=== PATIENT | female | born 1965 | race Caucasian/White ===

== ENCOUNTER 2016-08-07 10:33 | Emergency (ER) | payer OTHER, MEDICARE ==
[~2016-08-07] VITALS: Ht 162.6 cm; Wt 64.0 kg
[2016-08-07 10:35] VITALS: BP 141/74; PULSE 75; RESP 16; TEMP 97.8; O2SAT 98
[2016-08-07] MEDS ORDERED: NAPR220T95 PO (11:04)
[2016-08-07] MEDS ORDERED: TOPI1TAB31 PO (11:04)
[2016-08-07] MEDS ORDERED: FURO1TAB62 PO (11:04)
--- NOTE | 2016-08-07 11:04 | PD ---
HPI . acute on chronic back pain, now with loss of bowel/bladder fxn Chief Complaint: Back/ Neck Pain or Injury Time Seen by Provider: 11:03 Travel History International Travel<30 days: No Contact w/Intl Traveler<30days: No Traveled to known affect area: No History of Present Illness HPI 51-year-old female with a long-standing history of chronic back pain stemming as far back as 2004 in our records here with complaints of acute on chronic back pain. Patient tells me that she has been having extreme amounts of pain in her lower back. She rates the pain as 8/10 and it extends into her lower extremities. Within the past month patient has had several episodes of loss of bowel function. She tells me she was unaware that she actually had a bowel movement. She is also having similar issues with her urine. She is in the process of getting a new primary care provider, but does not have an appointment until the end of this month. PFSH Past Medical History ?: Not Social History Tobacco Use: No Allergies-Medications (Allergen,Severity, Reaction): Coded Allergies: Morphine (Verified Allergy, Severe, ITCHING, 08/07/16) Tramadol (Verified Allergy, Severe, ITCHING, 08/07/16) Uncoded Allergies: ANTIBIOTIC (Allergy, Severe, ITCHING, 08/07/16) Reported Meds & Prescriptions Reported Meds & Active Scripts Active Reported Aleve (Naproxen Sodium) 220 Mg Tab 220 Mg PO BID PRN Topiramate 100 Mg Tab 100 Mg PO BID Lasix (Furosemide) 20 Mg Tab 20 Mg PO DAILY Review of Systems General / Constitutional: No: Fever Eyes: No: Visual changes HENT: No: Headaches Cardiovascular: No: Chest Pain or Discomfort Respiratory: No: Shortness of Breath Gastrointestinal: No: Abdominal Pain Genitourinary: No: Dysuria Musculoskeletal: Positive: Pain (back pain) Skin: No Rash Neurologic: No: Weakness Psychiatric: No: Depression Endocrine: No: Polydipsia Hematologic/Lymphatic: No: Easy Bruising Physical Exam Narrative GENERAL: AAO x 3, no acute distress, Well-nourished, well-developed patient. SKIN: Warm and dry. No visible rashes or bruising. HEAD: Normocephalic and atraumatic. EYES: No scleral icterus. No injection or drainage. ENT: No nasal drainage noted. Airway patent. NECK: Supple, trachea midline. No JVD. CARDIOVASCULAR: Regular rate and rhythm without murmurs, gallops, or rubs. RESPIRATORY: Breath sounds equal bilaterally. No accessory muscle use. No rhonchi or rales. GASTROINTESTINAL: Abdomen soft, non-tender, nondistended. EXTREMITIES: No cyanosis or edema. BACK: SLR ++ right side, sensation in the RLE is abnormal compared to left, diminished strength in RLE. patient very uncomfortable with any movement of lower back PSYCH: AAO x 3, normal affect. Data Data Last Documented VS Vital Signs Date Time Temp Pulse Resp B/P Pulse Ox O2 Delivery O2 Flow Rate FiO2 08/07/16 10:35 97.8 75 16 141/74 98 MDM Medical Decision Making Medical Screen Exam Complete: Yes Emergency Medical Condition: Yes Medical Record Reviewed: Yes (back pain 2004) Differential Diagnosis acute on chronic back pain, cauda equina, lumbar radiculopathy Narrative Course 51-year-old female with a long-standing history of chronic back pain stemming as far back as 2004 in our records here with complaints of acute on chronic back pain. Patient tells me that she has been having extreme amounts of pain in her lower back. She rates the pain as 8/10 and it extends into her lower extremities. Within the past month patient has had several episodes of loss of bowel function. She tells me she was unaware that she actually had a bowel movement. She is also having similar issues with her urine. She is in the process of getting a new primary care provider, but does not have an appointment until the end of this month. Patient seen and examined. She has significant findings on physical exam. Most of all she is reporting loss of bowel and bladder function. I recommend transferring her to a medical bed for further evaluation. It is possible that this patient may have some spinal cord compression. Her disposition will be determined by the next medical provider. Additional Instructions: Please return to emergency department if your symptoms return or worsen. Follow up with your primary care provider. Take medications as prescribed. Condition: Stable Velvet Roche Aug 07, 2016 11:04
--- NOTE | 2016-08-07 11:39 | PD ---
Physical Exam Time Seen by Provider: 11:37 Narrative This is a 51-year-old female that was previously seen by ELA Juarez. See her note for initial evaluation. Patient admits to having history of chronic low back pain X2 years after falling off a dock and fracturing her spine. She reports worsening over the past year, and more over the past month she cannot tolerate anymore. She reports incontinence of urine and stool 3-4 times since January; last episode approximately 2 weeks ago. Denies saddle anesthesias. Her pain is midline lower back. Denies IV drug use, current cancer. Denies fever, chills, nausea, vomiting, abdominal pain. Denies current change in urine or stool. Pain is worse with walking, sitting, movement. No known relieving factors. History of 7 surgeries on her right leg including knee replacements and laparoscopies. Reports nerve damage to her right leg causing numbness and tingling which is not changed. Dr. Agudelo is primary care provider. No other modifying factors or associated symptoms. Data Data Last Documented VS Vital Signs Date Time Temp Pulse Resp B/P Pulse Ox O2 Delivery O2 Flow Rate FiO2 08/07/16 15:49 55 20 96/55 98 08/07/16 10:35 97.8 Orders Mri L Spine W/O Contrast (08/07/16 ) [facility] Medical Record Reviewed: Yes Supervised Visit with NORBERTO: Yes Differential Diagnosis Acute exacerbation of chronic low back pain, sciatica, lumbar radiculopathy Narrative Course 51-year-old female with chronic low back pain. She has had episodes of urinary incontinence and stool incontinence since January. Her last episode was 2 weeks ago. Patient does have midline tenderness on palpation of the lumbar spine. I spoke with Dr. Jiang physician, and she agreed an MRI of the L-spine is appropriate. Last 24 hours Impressions Lumbar Spine MRI 08/07/16 0000 Signed Impressions: Service Date/Time: Sunday, August 07, 2016 13:44 - CONCLUSION: Degenerative changes at L4-L5 with moderate lateral recess stenosis.. Reji Munguia MD FACR Patient will be discharged home with prescriptions for Flexeril and Lortab. Instructed patient to follow up with primary care provider and pain management. Patient verbalizes understanding and agreement with treatment plan. Patient is medically cleared and stable for discharge. Discussed reasons to return to the emergency department. Instructed patient to follow up with primary care provider. Patient agrees with treatment plan. The patients vital signs are stable and the patient is stable for outpatient follow-up and treatment. Patient discharged home, stable and in no acute distress. Diagnosis Primary Impression: Low back pain Qualified Code: M54.5 - Midline low back pain, unspecified chronicity, with sciatica presence unspecified Referrals: Pain Management Primary Care Physician Patient Instructions: Acute Low Back Pain (ED), General Instructions Additional Instruction: Please return to emergency department if your symptoms return or worsen. Follow up with your primary care provider. Take medications as prescribed. Med/Other Pt SpecificInfo: Prescription(s) given Scripts Cyclobenzaprine (Flexeril)10 Mg Tab10 Mg PO TID PRN (MUSCLE SPASM) #30 TAB Ref 0 Prov:Lanie Booker 08/07/16 Hydrocodone-Acetaminophen (Lortab)5-325 Mg Tab1-2 Tab PO Q6H PRN (PAIN) #20 TAB Ref 0 Prov:Michelle Jiang MD 08/07/16 Disposition: 01 DISCHARGE HOME Condition: Stable Lanie Booker Aug 07, 2016 11:39
--- NOTE | 2016-08-07 14:46 | RADRPT ---
EXAM DATE/TIME: 08/07/2016 13:44 [facility] COMPARISON: No previous studies available for comparison. INDICATIONS : Low back and right hip pain. MEDICAL HISTORY : None. SURGICAL HISTORY : Hysterectomy. Total right knee replacement. ENCOUNTER: Initial ACUITY: 1 day PAIN SCORE: 5/10 LOCATION: [facility] TECHNIQUE: Multiplanar multisequence MRI of the lumbar spine was performed without contrast. FINDINGS: The most caudal appearing lumbar vertebra is numbered as L5. VERTEBRAE: Homogeneous signal. Normal alignment. CONUS: Normal level and configuration. T12-L1: The thecal sac has a normal diameter. No evidence of disc bulge or protrusion. The neural foramina are patent bilaterally. L1-L2: The thecal sac has a normal diameter. No evidence of disc bulge or protrusion. The neural foramina are patent bilaterally. L2-L3: The thecal sac has a normal diameter. No evidence of disc bulge or protrusion. The neural foramina are patent bilaterally. L3-L4: The thecal sac has a normal diameter. No evidence of disc bulge or protrusion. The neural foramina are patent bilaterally. L4-L5: The thecal sac has a normal diameter. There are degenerative changes in the facets with mild lateral recess stenosis. There is no focal disc herniation. L5-S1: The thecal sac has a normal diameter. No evidence of disc bulge or protrusion. The neural foramina are patent bilaterally. CONCLUSION: Degenerative changes at L4-L5 with moderate lateral recess stenosis.. Reji Munguia MD FACR on August 07, 2016 at 14:41 Board Certified Radiologist. This report was verified electronically.
[2016-08-07] MEDS ORDERED: HYDR-3533 PO (15:04)
--- NOTE | 2016-08-07 15:04 | PD ---
Data Data Last Documented VS Vital Signs Date Time Temp Pulse Resp B/P Pulse Ox O2 Delivery O2 Flow Rate FiO2 08/07/16 10:35 97.8 75 16 141/74 98 Orders Mri L Spine W/O Contrast (08/07/16 ) MDM Supervised Visit with NORBERTO: Yes Narrative Course I, Dr. Jiang, have reviewed the advance practice practioner's documentation and am in agreement, met with the patient face to face, made the diagnosis, and the medical decision making was done by me. *My assessment and Findings: 51-year-old female here with complaint of chronic back pain increasing over the course of the last several months with episodes of fecal and urinary incontinence 2 weeks ago, no saddle anesthesia or IV drug abuse. Patient does have some reproducible tenderness to palpation in the right SI joint, suspect sacroiliitis that she does have other type symptoms but with her bowel and bladder incontinence will obtain MRI to evaluate for cauda equina. MRI shows some degenerative changes but otherwise negative. She'll be discharged home with outpatient pain management and PCP follow-up. Additional Instruction: Please return to emergency department if your symptoms return or worsen. Follow up with your primary care provider. Take medications as prescribed. Condition: Stable Michelle Jiang MD Aug 07, 2016 15:04
[2016-08-07] MEDS ORDERED: CYCL1TAB29 PO (15:06)
[2016-08-07 15:49] VITALS: BP 96/55; PULSE 55; RESP 20; O2SAT 98
[2016-08-18] MEDS ORDERED: ESTR20IN IM (10:20)
[2016-08-18] MEDS ORDERED: CYCL1TAB29 PO (11:00)
[2016-08-18] MEDS ORDERED: HYDR-3533 PO (11:00)
[2016-08-18] MEDS ORDERED: FURO1TAB62 PO (11:00)
[2016-08-18] MEDS ORDERED: TOPI1TAB31 PO (11:02)
[2016-10-08] MEDS ORDERED: TOPA100T11 PO ×2 (15:02→15:12)
== END 2016-08-07 15:40 | disposition home or self-care (01) ==
LOC: NEPD 10:33
DX: M54.5 Low back pain (principal); G89.29 Other chronic pain; R32 Unspecified urinary incontinence
CPT/HCPCS: 72148